=== PATIENT | female | born 1980 | race Caucasian/White ===

== ENCOUNTER 2016-07-11 10:13 | Emergency (ER) | payer MEDICARE | END 2016-07-11 12:06 | disposition home or self-care (01) | LOC: D.ER 10:13 | DX: S92.401A Displaced unspecified fracture of right great toe, initial encounter for closed fracture (principal); W22.8XXA Striking against or struck by other objects, initial encounter; Y93.89 Activity, other specified; Y92.89 Other specified places as the place of occurrence of the external cause; S99.921A Unspecified injury of right foot, initial encounter; M79.671 Pain in right foot; E11.9 Type 2 diabetes mellitus without complications; Z79.4 Long term (current) use of insulin; G62.9 Polyneuropathy, unspecified ==

== ENCOUNTER 2016-08-13 10:13 | Day surgery (SDC) | payer MEDICARE ==
[~2016-08-13] VITALS: Ht 175.3 cm; Wt 140.6 kg
[~2016-08-13 10:13] MED LIST: ADIPEX-P37.5 M1 PO; LISINOPRIL-HCTZ1 TA2 PO
[2016-08-13 12:06] LABS: HEMOGLOBIN 15.6 g/dL (12-16); MCHC 33.9 g/dL (31.0-37.0); MCV 85.5 fL (80.0-100.0); MEAN PLATELET VOLUME 9.1 fL (7.4-10.4); RBC 5.38 10x6/uL (4.00-5.40); RDW 12.9 % (11.5-14.5); WBC 12.9 10x3/uL (4.8-10.8)
[2016-08-13 12:18] LABS: CALC OSMOLALITY 280 mosm/kg (275-300); CALCIUM 9.1 mg/dL (8.5-10.1); CARBON DIOXIDE 28.9 mmol/L (21.0-32.0); CHLORIDE - SERUM 100 mmol/L (98-107); CREATININE - SERUM 0.8 mg/dL (0.6-1.3); GLUCOSE 280 mg/dL (74-106); POTASSIUM - SERUM 4.1 mmol/L (3.5-5.1); SODIUM 136 mmol/L (136-145); UREA NITROGEN 11 mg/dL (7-18); eGFR NON AFRICAN AMERICAN 86 mL/min (90-120)
[2016-08-13] MEDS ORDERED: RISPERDAL2 MG PO (12:18)
[2016-08-13] MEDS ORDERED: LEXAPRO20 MG PO (12:19)
[2016-08-13] MEDS ORDERED: TRAZODONE HCL50 MG PO (12:19)
[2016-08-13] MEDS ORDERED: OMEPRAZOLE20 M1 PO (12:20)
[2016-08-13] MEDS ORDERED: KLONOPIN1 MG PO (12:21)
[2016-08-13] MEDS ORDERED: LANTUS INSULIN10 ML SC (12:21)
[2016-08-13] MEDS ORDERED: CLARITIN 10 MG10 MG PO (12:22)
[2016-08-13] MEDS ORDERED: HYDROCODONE-APA1 TAB PO ×2 (12:22→15:13)
[2016-08-13] MEDS ORDERED: TOPROL XL25 MG PO (12:23)
[2016-08-13] MEDS ORDERED: XANAX XR2 MG PO (12:23)
[2016-08-13] MEDS ORDERED: TRULICITY0.75 MG/0. SC (12:25)
[2016-08-13 12:27] VITALS: BP 130/83; Ht 175.3 cm; Wt 140.6 kg
[2016-08-13 12:55] LABS: HCG URINE NEGATIVE (NEGATIVE)
--- NOTE | 2016-08-13 12:56 | NUR ---
1250 PATIENTS BLOOD SUGAR [address] CLARK, NO NEW ORDERS NOTED
--- NOTE | 2016-08-13 17:21 | NUR ---
1620 IV DC WITH CATHER TIP INTACT
--- NOTE | 2016-08-17 18:11 | OP ---
PATIENT NAME: JENISE BENÍTEZ MEDICAL RECORD: [id number] :82 LOCATION:D.OPS ADMISSION DATE: SURGEON: ANN FLORES MD DATE OF OPERATION: 08/13/2016 PREOPERATIVE DIAGNOSIS: DIP joint articular fracture of the left great toe. POSTOPERATIVE DIAGNOSIS: DIP joint articular fracture of the left great toe. PROCEDURE: Open reduction internal fixation of the DIP intraarticular fracture. SURGEON: Ann Flores MD ANESTHESIA: General. INTRAOPERATIVE COMPLICATIONS: None. SUMMARY OF PATHOLOGIC FINDINGS: Unfortunately, condyles were inverted and had to be raised and fixed with compression for adequate realignment of the articular space. OPERATIVE SUMMARY IN DETAIL: After obtaining the appropriate preoperative orthopedic surgery consents as well as anesthetic consultation, evaluation and clearance, the patient was brought to the operating room and placed in the operating table in supine position. After adequate general laryngeal mask airway was administered, a tourniquet was placed about the proximal aspect of the right lower extremity. Right lower extremity was prepped and draped in routine sterile fashion. Tourniquet was not used during this case. K-wires were placed from both sides and these were used to tease the condyles back into place as seen on fluoroscopy. This was also helped with the small incision and then a guidewire for the 4.0 cannulated compression screw was placed across the reduced condyles. This was gently placed, 18 mm long screw was placed. He was evaluated on both AP and lateral planes resulted in excellent reduction of the intraarticular portion of the joint. Wound was then irrigated and closed. Sterile dressings were applied. No tourniquet was used. The patient was awakened, taken to recovery in stable condition. All final needle and sponge counts were correct. TRANSINT:[id number] Voice Confirmation ID: [id number] DOCUMENT ID: [id number] ANN FLORES MD at 1811 CC: [id number] DICTATION DATE: 08/14/16 1433 SUPERINTENDENT LAUNDRY: 08/15/16 0125 [facility] 08/13/16 [facility] [address] [place] [address]
== END 2016-08-13 16:45 | disposition home or self-care (01) ==
LOC: D.OPS 10:13 → D.PAN 13:15 → D.OPS 13:15
PROVIDERS: Anesthesiology; Orthopaedic Surgery
DX: S92.401A Displaced unspecified fracture of right great toe, initial encounter for closed fracture (principal); F17.200 Nicotine dependence, unspecified, uncomplicated; J45.909 Unspecified asthma, uncomplicated; I10 Essential (primary) hypertension; E11.9 Type 2 diabetes mellitus without complications; K21.9 Gastro-esophageal reflux disease without esophagitis; E66.01 Morbid (severe) obesity due to excess calories; Z68.42 Body mass index [BMI] 45.0-49.9, adult; Z01.812 Encounter for preprocedural laboratory examination